=== PATIENT | female | born 1955 | race Caucasian/White ===

== ENCOUNTER 2016-07-20 10:28 | Outpatient (CLI) | payer OTHER | END 2016-07-20 10:29 | disposition home or self-care (01) | LOC: NC 10:28 | DX: E66.9 Obesity, unspecified (principal); Z71.3 Dietary counseling and surveillance ==

== ENCOUNTER 2016-08-10 08:05 | Outpatient (CLI) | payer OTHER | END 2016-08-10 08:06 | disposition home or self-care (01) | LOC: NC 08:05 | DX: E66.01 Morbid (severe) obesity due to excess calories (principal); Z71.3 Dietary counseling and surveillance; Z68.43 Body mass index [BMI] 50.0-59.9, adult; I25.10 Atherosclerotic heart disease of native coronary artery without angina pectoris; I10 Essential (primary) hypertension; N39.0 Urinary tract infection, site not specified; E03.9 Hypothyroidism, unspecified; E55.9 Vitamin D deficiency, unspecified; R53.1 Weakness; R53.83 Other fatigue ==

== ENCOUNTER 2016-08-25 05:49 | Day surgery (SDC) | payer OTHER ==
--- NOTE | 2016-08-24 15:32 | HP ---
DATE OF CLINIC: 08/17/2016 SHAN SHIPLEY : 1955 PLANNED PROCEDURE: Left Knee Arthroscopic Partial Medial Meniscectomy DATE OF SURGERY: August 25, 2016 SURGEON: Robinson Del Rio M.D. HISTORY OF PRESENT ILLNESS Shan Shipley is a 60 year old female. * Medication list reviewed with patient allergy list reviewed with patient. 60-year-old female with known left knee osteoarthritis, but now significant worsening after a twisting injury previously seen here and sent for an MRI. Patient states that she continues to have left knee pain despite a course of non-steroidal anti-inflammatories. She also has to f/u on her MRI imaging. She is interested in having this addressed to get her back to her baseline of function. She reports most of her pain is over the medial side of the knee. It is worse with activities. She rates it as bad as a 4/10. She doesn't think the anti-inflammatories really gave her much relief. After discussion and review of treatment options, both operative and non-operative, she has elected to proceed with surgery and presents today preoperatively. No changes to her past medical or surgical history. CURRENT MEDICATION * *Supplement Miscellaneous as directed Calcium Citrate, Magnesiun, and Zinc-1 a dayVitamin C 1000-BIDVitamin D3 1000ui-BIDMelatonin 3mg-1 a day, 0 days, 0 refills * Benzonatate 200 MG Capsule as needed 0 days, 0 refills * Dicyclomine HCl 10 MG Capsule 1 twice a day 0 days, 0 refills * Levothyroxine Sodium 75 MCG Tablet 1 once a day 0 days, 0 refills * Losartan Potassium 50 MG Tablet 1 once a day 0 days, 0 refills * Meloxicam 15 MG Tablet TAKE 1 TABLET BY MOUTH EVERY DAY, 45 days, 0 refills * Pantoprazole Sodium 40 MG Tablet Delayed Release as needed 0 days, 0 refills * Sucralfate 1 GM Tablet 2 twice a day 0 days, 0 refills * Warfarin Sodium 5 MG Tablet 1 once a day 0 days, 0 refills PAST MEDICAL/SURGICAL HISTORY Reported: Medical: Stomach problems, bladder disease, kidney disease, Reported numbness, Reported tingling, history of Arthritis, Thyroid Disorder, Hypertension, Anemia, Venous thrombosis, Vertigo, Poor healing wounds/lesions, and Asthma. Surgical / Procedural: Prior surgery Tubal ligation 04/1987 Torn meniscus (does not remember which side) 2008 partial thyroid removal 06/2012. Prior surgery Mammogram- 2012. Diagnoses: Hypertension Venous thrombosis Pulmonary embolism. Asthma. Gastric ulcer. Anemia Seizure disorder. Surgical: * Left lobe thyroid lobectomy by TOO 06/27/2013 * Colonoscopy (fiberoptic) 2011 SOCIAL HISTORY Behavioral: Never smoked. Smoking status: Never smoker. Alcohol: Alcohol Occasionally. Drug Use: Drug use 1992 and using marijuana 1992. Work: Occupation HR analysist. ALLERGIES * Codeine Derivatives * Reglan Reaction: Skin Rashes/Hives FAMILY HISTORY 3 children living Sister with thyroid cancer Family medical history Mother: Blood Clots. HBP Father: Stroke, Diabetes, HBP REVIEW OF SYSTEMS No recent constitutional symptoms to include fevers and chills. No recent cardiovascular symptoms to include chest pain or palpitations. No recent respiratory symptoms to include shortness of breath or recent infections. PHYSICAL FINDINGS * Vitals taken 08/17/2016 03:46 pm BP-Sitting L 91/74 mmHg BP Cuff Size Regular Pulse Rate-Sitting 75 bpm Temp-Oral 97.4 F Height 64 in Weight 300 lbs Body Mass Index 51.5 kg/m2 Body Surface Area 2.32 m2 Pain Level 2 Ears, Nose, Throat: * ENT: normal. Lungs: * Clear to auscultation. Cardiovascular: Heart Rate and Rhythm: * Normal. Abdomen: * Normal. Neurological: Motor: * Dominant Hand = Right Hand. Patient is a well-developed, well-nourished female in no acute distress. She is awake, alert and conversant throughout the encounter. CARDIOVASCULAR: Intact peripheral pulses on bilateral lower extremities. No significant edema on inspection of bilateral lower extremities. NEUROLOGIC: Patient had intact coordinated composite motion of the bilateral lower extremities and sensation intact to light touch in all distributions of bilateral lower extremities. PSYCHIATRIC: Patient was oriented to person, place and time and displayed appropriate mood and affect during the encounter. SKIN: Exam of the skin on bilateral lower extremities showed no significant scars, lesions, rashes or masses. FOCUSED MUSCULOSKELETAL EXAM: Patient ambulates with mild antalgia on the left side. She has normal resting station of the hips, knees and ankles. Left knee shows mild effusion. No erythema or ecchymosis. She is tender over the medial jointline. She has ROM from 0-120 degrees. She has a positive Maximiliano's with pain and a click over the medial side of the knee. She has pain when she goes into maximal flexion on this knee. She can perform a SLR and has 5/5 strength in flexion and extension at the knee. She is stable to varus and valgus stress at 0 and 30. Negative anterior and posterior drawer. She has a warm and well perfused leg distally with intact sensation. IMAGING Review of her MRI demonstrates a posterior horn medial meniscus tear as well as some chondromalacia of the patellofemoral joint and some osteoarthritis changes of the medial compartment. ASSESSMENT 60-year-old female with left knee known osteoarthritis, but now a significant change, especially with mechanical symptoms in the presence of an MRI documented meniscus tear. THERAPY * Patient fall risk screen positive. * Patient eligible for fall risk assessment. * Patient received fall risk assessment. PLAN * Derang of post horn of medial mensc d/t old tear/inj, l knee Percocet 5-325 MG TABS, Take 1-2 tablets every 4 hours as needed for pain, 14 days, 0 refills * Knee Arthroscopy (Left) with PMM CARE TEAM Riley Jauregui MD [facility] SURGICAL CONSENT We have discussed surgical options including left knee arthroscopic PMM and non-operative management. The patient was counseled in detail regarding the diagnosis, treatment options available, prognosis of each treatment option and the potential risks and complications. The risks of surgery include, but are not limited to, anesthetic , neurovascular complications, pulmonary embolism, deep vein thrombosis, wound dehiscence, failure of any or all of the discussed procedures, infection of the joint or surrounding soft tissue, need for revision surgery, chronic pain, limitations in activities of daily living, inability to return to work, and loss of normal range of motion or functional use of the extremity. There is the possibility of failure over time that may require additional operative or non-operative treatment. The patient acknowledged that there are a number of perioperative risks not mentioned here and would still like to proceed. The patient is aware of and understands these risks, and wishes to proceed with the proposed surgical procedure and other procedures as indicated at the time of surgery. We will have the patient see their PCP for a preoperative medical risk assessment. The preoperative instructions were reviewed with the patient and all questions were answered. PB/sg
[2016-08-25] MEDS ORDERED: IV START KIT ONE (05:52)
[2016-08-25] MEDS ORDERED: LACTATED RINGERS 1,000 ML ONE (05:52)
[2016-08-25] MEDS ORDERED: CEFAZOLIN SODIUM 2 GRAM PREMIX 100 ML IV ONE (05:52)
[2016-08-25] MEDS ORDERED: CEFAZOLIN SODIUM 2 GRAM PREMIX 100 ML IV PRN (06:00)
[2016-08-25] MEDS ORDERED: MIDAZOLAM HCL 1 MG/ML 2ML VIAL ONE (06:17)
[2016-08-25] MEDS ORDERED: FENTANYL 100 MCG/2 ML VIAL ONE ×3 (06:18→08:47)
[2016-08-25] MEDS ORDERED: LIDOCAINE 2% (PRES FREE) 5 ML VIAL ONE (06:18)
[2016-08-25] MEDS ORDERED: PROPOFOL 40 ML IV ONE (06:18)
[2016-08-25] MEDS ORDERED: BUPIVACAINE 0.5% W/EPI SDV 30 ML VIAL ONE (06:59)
[2016-08-25] MEDS ORDERED: ONDANSETRON 4 MG/2ML 2 ML VIAL ONE (07:26)
[2016-08-25] MEDS ORDERED: DEXAMETHASONE SOD PHOS 4 MG/1 ML VIAL ONE (07:26)
[2016-08-25] MEDS ORDERED: SUCCINYLCHOLINE CHL 20 MG/ML DOSE ONE (07:26)
[2016-08-25] MEDS ORDERED: PHENYLEPHRINE 10 MG/1 ML (1%) VIAL ONE (07:31)
[2016-08-25] MEDS ORDERED: EPHEDRINE SULFATE UD SYR 25 MG 25 MG/5 ML SYRINGE IV ONE ×2 (07:34→07:50)
[2016-08-25] MEDS ORDERED: PROMETHAZINE HCL 25 MG/ML VIAL IM PRN (07:41)
[2016-08-25] MEDS ORDERED: HYDROMORPHONE HCL 1 MG/ML SYRINGE IV PRN ×2 (07:41→09:12)
[2016-08-25] MEDS ORDERED: LABETALOL HCL 5 MG/ML 20ML VIAL IV PRN (07:41)
[2016-08-25] MEDS ORDERED: ONDANSETRON 4 MG/2ML 2 ML VIAL IV PRN ×2 (07:41→09:12)
[2016-08-25] MEDS ORDERED: HYDRALAZINE HCL 20 MG/1 ML VIAL IV PRN (07:41)
[2016-08-25] MEDS ORDERED: NALOXONE HCL 0.4 MG/ML VIAL IV PRN (07:41)
[2016-08-25] MEDS ORDERED: ATROPINE SULFATE 0.4 MG/1 ML VIAL IV PRN (07:41)
[2016-08-25] MEDS ORDERED: MEPERIDINE 25 MG/ML SYRINGE IV PRN (07:41)
[2016-08-25] MEDS ORDERED: LACTATED RINGERS 1,000 ML IV SCH ×2 (07:45→09:12)
[2016-08-25] MEDS ORDERED: VASOPRESSIN 20 UNITS/ML VIAL ONE (07:47)
--- NOTE | 2016-08-25 08:37 | PCMBPN ---
Brief Post Op Note: Date of Procedure: 08/25/16 Start Time: 0745 Preoperative Diagnosis: 1. left knee medial meniscus tear Postoperative Diagnosis: 1. Same Procedure: left knee scope with partial medial meniscectomy Surgeon: Robinson Del Rio MD Assist: Ricardo Nesbitt PA-C Anesthesia: Karlo Pierre Findings: tricompartmental arthritis with large medial meniscus tear Condition: stable to PACU Complications: none IV Fluids: 1700 mLs of LR Urine Output: 0 mLs Estimated Blood Loss: 50 mLs Tourniquet Time: 25 min at 300 mm Hg Specimens: none Implants: none Drains: none Robinson Del Rio MD
[2016-08-25] MEDS ORDERED: HYDROMORPHONE HCL 1 MG/ML SYRINGE ONE (08:47)
[2016-08-25] MEDS: FENTANYL 100 MCG/2 ML VIAL IV PRN ×2 (08:50→08:57)
[2016-08-25] MEDS ORDERED: ACETAMINOPHEN 325 MG TABLET PO PRN (09:12)
[2016-08-25] MEDS ORDERED: OXYCODONE/ACETAMINOPHEN 5/325 MG TABLET PO PRN (09:12)
[2016-08-25] MEDS ORDERED: DIPHENHYDRAMINE HCL 50 MG/1 ML VIAL IV PRN (09:12)
[2016-08-25] MEDS ORDERED: OXYCODONE HCL 5 MG TABLET ONE (09:42)
--- NOTE | 2016-08-26 10:59 | OP ---
Sarah GRANGER : 1955 [id number] DATE OF PROCEDURE: August 25, 2016 PREOPERATIVE DIAGNOSIS: Left knee medial meniscus tear. POSTOPERATIVE DIAGNOSIS: Left knee medial meniscus tear. PROCEDURE PERFORMED: Left knee arthroscopy with partial medial meniscectomy. SURGEON: Robinson Del Rio M.D. SLITTER AND REWINDER: Raffi Nesbitt P.A.-C. ANESTHESIA: Karlo Pierre CNicole.N.Torrie SPECIMENS: No material was sent to the laboratory. ESTIMATED BLOOD LOSS: 50 mL FLUIDS REPLACED: 1700 mL of crystalloid. TOURNIQUET TIME: 25 minutes at 250 mmHg. URINE OUTPUT: None. IMPLANTS: None. DRAINS: No drains. INDICATIONS: This is a 61-year-old female who complains of pain and mechanical symptoms in the right knee that have been increasing over time and have not responded to a course of nonoperative measures. Patient has an exam and imaging studies which are consistent with the above. Given failure to improve with nonoperative measures patient was consented for left knee arthroscopy with partial medial meniscectomy. The risks, benefits and alternatives were discussed at length with that patient and they elected to proceed with surgery. Informed consent was obtained and documented in the chart and the patient was placed on the schedule the first available convenience. DESCRIPTION OF PROCEDURE: The patient was identified in the preoperative holding area where they were marked with an indelible marker by the operating surgeon. Patient was taken to the operating room where they were placed in the supine position the operating room table. A general anesthesia was induced, perioperative antibiotics were administered and a well padded pre-calibrated nonsterile tourniquet was placed on the left upper thigh. Patient was prepped and draped in the usual sterile fashion for surgery. An operative time out was performed and confirmed by all members of the operative team confirming the patient identity, procedure to be performed and the laterally for that procedure. All necessary personnel, equipment and implants were in place and there were no safety concerns. The leg was elevated and exsanguinated using the Esmarch bandage and the tourniquet was inflated to 250 mmHg. A standard lateral portal was created and the 30 degree viewing arthroscope was inserted into the knee. Optics were directed anteromedially and a medial portal was localized and created in a standard fashion. A probe was inserted through this medial portal and used in completion of the diagnostic arthroscopy with the following findings: The patient had several loose bodies within the knee. She had a complex tear of the posterior horn of the medial meniscus with a fragment that came up to the midbody. She had significant grade 3 chondral changes over the medial femoral condyle. The ACL and PCL were intact. The lateral compartment showed some softening of cartilage but no sridevi meniscal tear. The patellofemoral joint showed several areas of softening of cartilage. There were no other loose bodies identified within the knee. The collateral ligaments appeared to be intact. After completion of diagnostic arthroscopy the probe was exchanged for an arthroscopic biter and this was used to resect back the medial meniscus to a stable rim. This was then exchanged for arthroscopic resector shaver which was used to complete the partial medial meniscectomy. A soft tissue grasper was used to remove several loose bodies from the joint and several others were washed out using the arthroscopic shaver. At this point we felt that we had addressed the patient's intra-articular pathology and so the camera and instruments were removed from the knee. The portal sites were closed with #4-0 Nylons; 20 mL of 0.5% Marcaine was injected into the knee for perioperative analgesia. A sterile dressing of Xeroform, fluffs, ABDs, web roll and then an SOLOMON bandage from ankle to the thigh was applied. The tourniquet was deflated, the drapes were removed. The patient was awakened from anesthesia and extubated in the operating room without difficulty. Patient was transferred to a stretcher and taken postoperatively to the post anesthesia care unit in stable condition. There were no observed intraoperative complications during this procedure. Job [id number] Cc: [facility]
== END 2016-08-25 10:43 | disposition home or self-care (01) ==
LOC: SDC 05:49
PROVIDERS: ATTEND Orthopaedic Surgery
PROC: 0SBD4ZZ Excision of Left Knee Joint, Percutaneous Endoscopic Approach (ICD-10-PCS; principal; 2016-08-25)
DX: M23.222 Derangement of posterior horn of medial meniscus due to old tear or injury, left knee (principal); M22.42 Chondromalacia patellae, left knee; M17.9 Osteoarthritis of knee, unspecified; I10 Essential (primary) hypertension; D64.9 Anemia, unspecified; G40.909 Epilepsy, unspecified, not intractable, without status epilepticus; Z88.5 Allergy status to narcotic agent; Z88.8 Allergy status to other drugs, medicaments and biological substances; Z79.01 Long term (current) use of anticoagulants; Z86.718 Personal history of other venous thrombosis and embolism; Z87.11 Personal history of peptic ulcer disease; X50.1XXA Overexertion from prolonged static or awkward postures, initial encounter
CPT/HCPCS: 29881; J1170; J3010 ×3; J1100; J2370; A9270; J2250; J2405; J7120; J0690

== ENCOUNTER 2016-09-09 08:15 | Outpatient (CLI) | payer OTHER | END 2016-09-09 08:16 | disposition home or self-care (01) | LOC: NC 08:15 | DX: E66.01 Morbid (severe) obesity due to excess calories (principal); Z71.3 Dietary counseling and surveillance; Z68.43 Body mass index [BMI] 50.0-59.9, adult; I25.10 Atherosclerotic heart disease of native coronary artery without angina pectoris; I10 Essential (primary) hypertension ==